=== PATIENT | female | born 1960 | race Caucasian/White ===

== ENCOUNTER → 2016-04-08 | Outpatient (CLI) | payer OTHER ==
[~2016-04-08] MED LIST: ADVA250A INH; DICL75TA PO; FLUO1TAB17 PO; GABA600T PO; GEOD60CA PO; HYDR50TA94 PO; KETO60IN6 IM; LIPI40TA PO; METH125I2 IM; METH750T PO; OMEP20TA PO; PRED-503 PO; VENTAER INH; VIST50CA PO
[2016-04-08 09:56] LABS: HDL CHOLESTEROL 71.7 MG/DL (40.0-60.0)
[2016-04-08 10:08] LABS: BICARBONATE 31.2 MEQ/L (21.0-32.0); POTASSIUM 3.9 MEQ/L (3.5-5.1)
== END ==
LOC: CLAB 08:39
PROVIDERS: ATTEND Hospitalist
DX: E78.5 Hyperlipidemia, unspecified (principal); I47.2 Ventricular tachycardia
CPT/HCPCS: 36415; 80048; 80061

== ENCOUNTER 2016-05-16 02:22 | Emergency (ER) | payer OTHER ==
[~2016-05-16 02:22] MED LIST changes: -ADVA250A INH; -DICL75TA PO; -FLUO1TAB17 PO; -KETO60IN6 IM; -METH125I2 IM; -PRED-503 PO; -VIST50CA PO
[2016-05-16 02:27] VITALS: BP 140/67; PULSE 62; RESP 16; TEMP 98.2; O2SAT 100
[2016-05-16] MEDS ORDERED: VIST50CA PO (02:30)
[2016-05-16] MEDS ORDERED: DICL75TA PO (02:41)
[2016-05-16] MEDS ORDERED: PRED-503 PO (02:41)
[2016-05-16] MEDS ORDERED: KETOROLAC TROMETHAMINE 60 MG/2 ML (IM) VIAL IM ONE (02:45)
--- NOTE | 2016-05-16 02:54 | PD ---
HPI Chief Complaint: Pain: Acute or Chronic Time Seen by Provider: 02:44 Travel History International Travel<30 days: No Contact w/Intl Traveler<30days: No Traveled to known affect area: No History of Present Illness HPI 55-year-old white female presents to emergency department by EMS for evaluation of left shoulder pain for the last month. She states that she was told that she had nerve pain by her primary care doctor. She is also followed by Dr. Self. She states the pain is worse with movement of the left upper extremity. She has bandlike pain around the upper arm with some tingling. She states the pain is moderate to severe. She can't sleep at night due to pain. She states that the pain brought her in this evening. She denies any chest pain or shortness of breath. No nausea vomiting. No anginal symptoms. There is no palliative activity. PFSH Past Medical History Hx Anticoagulant Therapy: No Arthritis: Yes Asthma: Yes Blood Disorders: No Bipolar Disorder: Yes Anxiety: Yes Cancer: No Cardiovascular Problems: No Chemotherapy: No COPD: Yes Cerebrovascular Accident: No Diabetes: No Diminished Hearing: No Endocrine: No GERD: Yes Genitourinary: No Headaches: Yes Immune Disorder: No Musculoskeletal: Yes (CHRONIC BACK PAIN.) Neurologic: No Psychiatric: Yes ("MOOD DISORDER") Reproductive: No Respiratory: No Migraines: Yes Menopausal: Yes : 3 Para: 3 Miscarriage: 0 : 0 Past Surgical History Section: Yes (3) Gynecologic Surgery: Yes (3 C-SECTIONS) Hysterectomy: No Other Surgery: Yes Social History Alcohol Use: Yes (daily) Tobacco Use: Yes (1/2 PPD) Substance Use: Yes (MARIJUANA) Allergies-Medications (Allergen,Severity, Reaction): Coded Allergies: Celexa (Verified Allergy, Severe, 05/16/16) Lexapro (Verified Allergy, Severe, 05/16/16) Risperdal (Verified Allergy, Severe, 05/16/16) Zoloft (Verified Allergy, Severe, 05/16/16) *MDRO Multi-Drug Resistant Organism (Verified Adverse Reaction, Unknown, ) 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 Reported Meds & Prescriptions Reported Meds & Active Scripts Active Diclofenac Sodium DR (Diclofenac Sodium) 75 Mg Tabdr 75 Mg PO BID Deltasone (Prednisone) 20 Mg Tab 20 Mg PO BID Omeprazole 20 Mg Tab 40 Mg PO DAILY Methocarbamol 750 Mg Tab 750 Mg PO TID Ventolin Hfa 18 GM Inh (Albuterol Sulfate) 90 Mcg/Act Aer 1 Puff INH Q4H PRN Gabapentin 600 Mg Tab 600 Mg PO QID Hydroxyzine HCl 50 Mg Tab 50 Mg PO TID Takes one tab BID and 4 tabs at HS Lipitor (Atorvastatin Calcium) 40 Mg Tab 40 Mg PO HS Reported Vistaril (Hydroxyzine Pamoate) 50 Mg Cap 50 Mg PO BID Geodon (Ziprasidone) 60 Mg Cap 60 Mg PO BID Review of Systems Except as stated in HPI: all other systems reviewed are Neg General / Constitutional: No: Fever, Chills Eyes: No: Blurred Vision, Photophobia HENT: No: Headaches, Sore Throat Cardiovascular: No: Chest Pain or Discomfort, Palpitations Respiratory: No: Cough, Shortness of Breath Gastrointestinal: No: Nausea, Vomiting Genitourinary: No: Frequency, Dysuria Musculoskeletal: Positive: Arthralgias, Limited ROM, Cramping, Pain, No: Myalgias, Weakness, Edema Skin: No Rash, No Itching Physical Exam Narrative GENERAL: This is a well-nourished, well-developed patient, in no apparent distress. SKIN: No rashes, ecchymoses or lesions. Warm and dry. HEAD: Atraumatic. Normocephalic. EYES: PERRL, EOMI, no discharge or injection. No scleral icterus. EARS: Clear NOSE: Nasal turbinates appear normal. THROAT: Mucosa pink and moist. Airway patent. NECK: Trachea midline. supple, moves head freely. LUNGS: Clear to auscultation. CV: Regular in rhythm. ABDOMEN: Soft nontender. EXT: No clubbing cyanosis or edema. Patient complains of pain in the left lower humeral joint. There is no erythema, warmth or joint effusion. She has limited range of motion when asked to perform range of motion. When the patient is distracted she is able move her arm with full range of motion. No pain in the elbow, wrist or hand. She has intact median/ulnar/radial nerves Data Data Last Documented VS Vital Signs Date Time Temp Pulse Resp B/P Pulse Ox O2 Delivery O2 Flow Rate FiO2 05/16/16 02:27 98.2 62 16 140/67 100 Orders Ketorolac Inj (Toradol Inj) (05/16/16 02:45) MDM Medical Decision Making Medical Screen Exam Complete: Yes Emergency Medical Condition: Yes Medical Record Reviewed: Yes Differential Diagnosis MDM: High Differential diagnoses: Fracture, sprain, strain, dislocation, contusion, neurovascular injury Narrative Course Patient's given Toradol 60 mg IM. She is given prescriptions for diclofenac and prednisone. This is left shoulder pain Diagnosis Primary Impression: Left shoulder pain Qualified Code: M25.512 - Acute pain of left shoulder Patient Instructions: General Instructions Additional Instructions: Rest. Diclofenac and prednisone. Follow-up with your doctor. Call in the morning for an appointment. Med/Other Pt SpecificInfo: Prescription(s) given Scripts Diclofenac Sodium DR 75 Mg Tabdr75 Mg PO BID #20 TAB Prov:Giovanni Gilmore MD 05/16/16 Prednisone (Deltasone)20 Mg Tab20 Mg PO BID #10 TAB Prov:Giovanni Gilmore MD 05/16/16 Disposition: 01 DISCHARGE HOME Condition: Stable Oscar Vigil May 16, 2016 02:54
[2016-05-26] MEDS ORDERED: GABA600T PO (12:31)
[2016-05-27] MEDS ORDERED: FLUO1TAB17 PO (12:05)
[2016-05-27] MEDS ORDERED: KETO60IN6 IM (12:21)
[2016-05-27] MEDS ORDERED: METH125I2 IM (12:21)
[2016-05-27] MEDS ORDERED: DICL75TA PO (12:23)
[2016-08-06] MEDS ORDERED: ADVA250A INH (09:26)
== END 2016-05-16 03:20 | disposition home or self-care (01) ==
LOC: NEPB 02:22
DX: M25.512 Pain in left shoulder (principal); J45.909 Unspecified asthma, uncomplicated; F17.210 Nicotine dependence, cigarettes, uncomplicated; F12.90 Cannabis use, unspecified, uncomplicated
CPT/HCPCS: 96372; 99283; J1885

== ENCOUNTER → 2016-05-27 | Outpatient (CLI) | payer OTHER ==
[~2016-05-27] MED LIST changes: +ADVA250A INH; +DICL75TA PO; +FLUO1TAB17 PO; +KETO60IN6 IM; +METH125I2 IM; +PRED-503 PO; +VIST50CA PO
--- NOTE | 2016-05-27 13:56 | RADRPT ---
EXAM DATE/TIME: 05/27/2016 13:19 [facility] COMPARISON: SHOULDER LEFT COMPLETE (>2VWS), July 22, 2011, 13:47. INDICATIONS : Pain left shoulder, possible injury 30 years ago, patient states arm dislocates frequently and ofte n while she is sleeping MEDICAL HISTORY : Hepatitis C. Hiatal hernia. SURGICAL HISTORY : None. ENCOUNTER: Initial ACUITY: >1 year PAIN SCORE: 10/10 LOCATION: Left shoulder FINDINGS: Multiple view examination of the left shoulder demonstrates no evidence of fracture or dislocation. The glenohumeral and acromioclavicular joints are maintained. There is normal range of motion betwee n internal and external rotation. Bony mineralization is normal. CONCLUSION: No acute fracture left shoulder. Marc Tavarez MD on May 27, 2016 at 13:54 Board Certified Radiologist. This report was verified electronically.
== END ==
LOC: HRAD 13:04
PROVIDERS: ATTEND Family Medicine
DX: M25.512 Pain in left shoulder (principal); G62.9 Polyneuropathy, unspecified; F10.10 Alcohol abuse, uncomplicated
CPT/HCPCS: 36415; 73030; 82607; 82746